=== PATIENT | male | born 2005 | race Two or more races ===

== ENCOUNTER 2025-05-05 22:47 | Emergency (ER) | payer SELFPAY ==
[2025-05-05 22:54] VITALS: BP 130/85; PULSE 98; RESP 16; TEMP 36.8; O2SAT 96
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
[2025-05-05 23:03] VITALS: RESP 12
== END 2025-05-05 23:03 ==
LOC: SERX 23:22
PROVIDERS: Emergency Provider Emergency Medicine
DX: Z02.89 Encounter for other administrative examinations (principal); Z04.1 Encounter for examination and observation following transport accident
CPT/HCPCS: 99281